=== PATIENT | female | born 1970 | race Caucasian/White ===

== ENCOUNTER 2016-05-30 09:18 | Emergency (ER) | payer MEDICAID ==
[2015-01-02 18:47] VITALS: BMI 58.4
[~2016-05-30 09:18] MED LIST: ADVAIR 250/501 DISK INH; ALBUTEROL2.5 MG/3 M INH; BUSPAR 15 MG TA15 MG PO; COMBIVENT RESPIM4 GM INH; EFFEXOR XR37.5 MG PO; IPRAT-ALBUT 0.5-3 ML UPD; MEDROL DOSE PACK4 MG PO; MUCINEX DM ER1 EAC1 PO; REQUIP0.25 MG PO; RESTORIL22.5 MG PO; SINGULAIR10 MG PO; ZITHROMAX250 MG PO
[2016-05-30 12:36] LABS: BASOPHILS 0.3 % (0.0-2.0); EOSINOPHILS 3.7 % (0-7); HEMOGLOBIN 14.4 g/dL (12-16); IMMATURE GRANULOCYTES 0.6 % (0-5); LYMPHOCYTES 18.5 % (15-50); MCHC 33.5 g/dL (31.0-37.0); MCV 86.5 fL (80.0-100.0); MEAN PLATELET VOLUME 9.7 fL (7.4-10.4); MONOCYTES 8.7 % (2-11); NEUTROPHILS 68.2 % (40-80); RBC 4.97 10x6/uL (4.00-5.40)
[2016-05-30 12:52] LABS: ALBUMIN 3.2 g/dL (3.4-5.0); ALKALINE PHOSPHATASE 160 U/L (46-116); ALT (SGPT) 32 U/L (10-68); CALC OSMOLALITY 269 mosm/kg (275-300); CALCIUM 8.8 mg/dL (8.5-10.1); CARBON DIOXIDE 27.5 mmol/L (21.0-32.0); CHLORIDE - SERUM 101 mmol/L (98-107); CREATININE - SERUM 0.7 mg/dL (0.6-1.3); GLUCOSE 109 mg/dL (74-106); PLATELET COUNT 181 10x3/uL (130-400); POTASSIUM - SERUM 3.5 mmol/L (3.5-5.1); PROTEIN - SERUM 7.1 g/dL (6.4-8.2); SODIUM 136 mmol/L (136-145); UREA NITROGEN 5 mg/dL (7-18); eGFR NON AFRICAN AMERICAN > 90 mL/min (90-120)
== END 2016-05-30 13:40 | disposition home or self-care (01) ==
LOC: D.ER 09:18
PROVIDERS: Physician Assistant Medical
DX: J45.901 Unspecified asthma with (acute) exacerbation (principal); J44.1 Chronic obstructive pulmonary disease with (acute) exacerbation

== ENCOUNTER → 2016-07-29 10:49 | Outpatient (CLI) | payer OTHER ==
[2015-01-02 18:47] VITALS: BMI 58.4
== END | disposition home or self-care (01) ==
LOC: D.RT 10:49
DX: Z02.71 Encounter for disability determination (principal)

== ENCOUNTER 2018-09-23 13:37 | Emergency (ER) | payer MEDICAID ==
[2015-01-02 18:47] VITALS: Ht 160 cm; Wt 136.4 kg
[~2018-09-23] VITALS: Ht 160 cm; Wt 136.4 kg
[2018-09-23 14:05] LABS: BASOPHILS 0.3 % (0-2); EOSINOPHILS 4.4 % (0-7); HEMATOCRIT 39.1 % (36.0-48.0); HEMOGLOBIN 13.1 g/dL (12-16); IMMATURE GRANULOCYTES 0.4 % (0-5); LYMPHOCYTES 22.7 % (15-50); MCHC 33.5 g/dL (31.0-37.0); MCV 83.5 fL (80.0-100.0); MEAN PLATELET VOLUME 9.2 fL (7.4-10.4); MONOCYTES 5.8 % (2-11); NEUTROPHILS 66.4 % (40-80); RBC 4.68 10x6/uL (4.00-5.40); RDW 13.8 % (11.5-14.5)
[2018-09-23 14:10] LABS: PLATELET COUNT 276 10x3/uL (130-400)
[2018-09-23 14:20] LABS: ALBUMIN 2.8 g/dL (3.4-5.0); ALKALINE PHOSPHATASE 158 U/L (46-116); ALT (SGPT) 27 U/L (10-68); BILIRUBIN - TOTAL 0.32 mg/dL (0.2-1.3); CALC OSMOLALITY 274 mosm/kg (275-300); CALCIUM 8.2 mg/dL (8.5-10.1); CHLORIDE - SERUM 104 mmol/L (98-107); CREATININE - SERUM 0.6 mg/dL (0.6-1.3); GLUCOSE 123 mg/dL (74-106); POTASSIUM - SERUM 3.6 mmol/L (3.5-5.1); PROTEIN - SERUM 6.7 g/dL (6.4-8.2); SODIUM 138 mmol/L (136-145); UREA NITROGEN 6 mg/dL (7-18); eGFR NON AFRICAN AMERICAN > 90 mL/min (90-120)
[2018-09-23] MEDS ORDERED: VIBRAMYCIN 100100 MG PO (18:55)
[2018-09-23] MEDS ORDERED: IPRAT-ALBUT 0.5-3 ML UPD (18:55)
[2018-09-23] MEDS ORDERED: PREDNISONE10 MG PO (18:55)
[2018-09-23 19:13] VITALS: BP 147/59
== END 2018-09-23 19:15 | disposition home or self-care (01) ==
LOC: D.ER 13:37
PROVIDERS: Emergency Medicine
DX: J44.1 Chronic obstructive pulmonary disease with (acute) exacerbation (principal)

== ENCOUNTER 2019-01-04 17:47 | Emergency (ER) | payer OTHER ==
[~2019-01-04] VITALS: Ht 160 cm; Wt 136.4 kg
[~2019-01-04 17:47] MED LIST changes: +PREDNISONE10 MG PO; +VIBRAMYCIN 100100 MG PO
[2019-01-04 18:06] VITALS: Ht 160 cm; Wt 136.4 kg
[2019-01-04] MEDS ORDERED: TYLENOL W/CODEI1 TAB PO (20:19)
[2019-01-04] MEDS ORDERED: PENICILLIN V P500 MG PO (20:20)
[2019-01-04 21:15] VITALS: BP 174/102
== END 2019-01-04 21:18 | disposition home or self-care (01) ==
LOC: D.ER 17:47
DX: K08.89 Other specified disorders of teeth and supporting structures (principal)

== ENCOUNTER 2019-01-25 20:15 | Emergency (ER) | payer OTHER ==
[~2019-01-25] VITALS: Ht 160 cm; Wt 136.4 kg
[~2019-01-25 20:15] MED LIST changes: +PENICILLIN V P500 MG PO; +TYLENOL W/CODEI1 TAB PO
[2019-01-25 20:30] VITALS: Ht 160 cm; Wt 136.4 kg
[2019-01-25 22:15] LABS: BASOPHILS 0.2 % (0-2); EOSINOPHILS 2.7 % (0-7); HEMATOCRIT 38.8 % (36.0-48.0); HEMOGLOBIN 12.5 g/dL (12-16); IMMATURE GRANULOCYTES 0.2 % (0-5); LYMPHOCYTES 24.5 % (15-50); MCH 27.7 pg (26.0-34.0); MCHC 32.2 g/dL (31.0-37.0); MEAN PLATELET VOLUME 9.4 fL (7.4-10.4); MONOCYTES 6.1 % (2-11); NEUTROPHILS 66.3 % (40-80); PLATELET COUNT 287 10x3/uL (130-400); RBC 4.51 10x6/uL (4.00-5.40); RDW 13.7 % (11.5-14.5); WBC 8.7 10x3/uL (4.8-10.8)
[2019-01-25 22:24] LABS: INR 0.97 (0.85-1.17); PROTIME 12.4 SECONDS (11.6-15.0)
[2019-01-25 22:37] LABS: ALBUMIN 2.9 g/dL (3.4-5.0); ALKALINE PHOSPHATASE 123 U/L (46-116); ALT (SGPT) 12 U/L (10-68); BILIRUBIN - TOTAL 0.11 mg/dL (0.2-1.3); CALC OSMOLALITY 271 mosm/kg (275-300); CALCIUM 8.6 mg/dL (8.5-10.1); CARBON DIOXIDE 29.3 mmol/L (21.0-32.0); CHLORIDE - SERUM 103 mmol/L (98-107); CREATININE - SERUM 0.7 mg/dL (0.6-1.3); GLUCOSE 109 mg/dL (74-106); POTASSIUM - SERUM 3.5 mmol/L (3.5-5.1); PROTEIN - SERUM 6.6 g/dL (6.4-8.2); SODIUM 136 mmol/L (136-145); UREA NITROGEN 9 mg/dL (7-18); eGFR NON AFRICAN AMERICAN > 90 mL/min (90-120)
[2019-01-25 22:52] LABS: CKMB 0.2 U/L (0.0-3.6); CREATINE KINASE 34 UL (21-215); PRO BNP 237 pg/mL (0-125); TROPONIN-I < 0.017 ng/mL (0.000-0.060)
[2019-01-25] MEDS ORDERED: CLEOCIN HCL300 MG PO (23:01)
[2019-01-25] MEDS ORDERED: ALBUTEROL SULF8.5 GM INH (23:03)
[2019-01-26 00:41] VITALS: BP 145/85
== END 2019-01-26 00:42 | disposition home or self-care (01) ==
LOC: D.ER 20:15
PROVIDERS: Family Medicine
DX: J44.1 Chronic obstructive pulmonary disease with (acute) exacerbation (principal); K04.7 Periapical abscess without sinus

== ENCOUNTER 2019-09-10 21:01 | Inpatient (IN) | payer OTHER ==
[~2019-09-10] VITALS: Ht 160 cm; Wt 144.2 kg
[~2019-09-10 21:01] MED LIST changes: +ALBUTEROL SULF8.5 GM INH; +CLEOCIN HCL300 MG PO
--- NOTE | 2019-09-10 21:15 | NUR ---
MENTAL HEALTH RN AT PT BEDSIDE PERFORMING ASSESSMENT
[2019-09-10 21:18] LABS: BASOPHILS 0.2 % (0-2); EOSINOPHILS 6.7 % (0-7); HEMOGLOBIN 12.7 g/dL (12-16); IMMATURE GRANULOCYTES 0.4 % (0-5); LYMPHOCYTES 25.7 % (15-50); MCH 27.4 pg (26.0-34.0); MCHC 31.8 g/dL (31.0-37.0); MCV 86.2 fL (80.0-100.0); MEAN PLATELET VOLUME 8.7 fL (7.4-10.4); MONOCYTES 6.3 % (2-11); NEUTROPHILS 60.7 % (40-80); PLATELET COUNT 288 10x3/uL (130-400); RBC 4.64 10x6/uL (4.00-5.40); RDW 13.7 % (11.5-14.5); WBC 8.3 10x3/uL (4.8-10.8)
[2019-09-10 21:27] LABS: APTT 29.7 SECONDS (22.8-39.4); CALC OSMOLALITY 269 mosm/kg (275-300); CALCIUM 8.1 mg/dL (8.5-10.1); CARBON DIOXIDE 26.3 mmol/L (21.0-32.0); CHLORIDE - SERUM 103 mmol/L (98-107); CREATININE - SERUM 0.8 mg/dL (0.6-1.3); GLUCOSE 115 mg/dL (74-106); INR 0.98 (0.85-1.17); PROTIME 12.9 SECONDS (11.6-15.0); SODIUM 135 mmol/L (136-145); UREA NITROGEN 9 mg/dL (7-18); eGFR NON AFRICAN AMERICAN 81 mL/min (90-120)
[2019-09-10 21:43] LABS: ALBUMIN 2.9 g/dL (3.4-5.0); ALKALINE PHOSPHATASE 140 U/L (30-120); ALT (SGPT) 36 U/L (10-68); BILIRUBIN - TOTAL 0.23 mg/dL (0.2-1.3); CKMB 0.7 U/L (0.0-3.6); CREATINE KINASE 48 UL (21-215); PRO BNP 181 pg/mL (0-125); PROTEIN - SERUM 6.5 g/dL (6.4-8.2)
[2019-09-10 21:45] LABS: TROPONIN-I < 0.017 ng/mL (0.000-0.060)
--- NOTE | 2019-09-10 22:15 | NUR ---
PT SITTING UPRIGHT ON BED. NO S/S OF ACUTE DISTRESS NOTED. PT DENIES NEEDS AT THIS TIME.
[2019-09-10 23:13] VITALS: BP 168/84
[2019-09-11] VITALS (7 sets, daily range): BP systolic 113–162; BP diastolic 60–103; BMI 56.4
--- NOTE | 2019-09-11 00:05 | NUR ---
PT ARRIVED ON UNIT VIA STRETCHER ESCORTED BY ER NURSE. POSITIONED IN BED FOR COMFORT. PROVIDED WATER, DIET SODA AND SANDWCH TRAY. O2 IN USE VIA NC AT 3L. TELEMETRY PLACED PER ORDER AND PT READING SR AT THIS ASSESSMENT.
[2019-09-11] MEDS ORDERED: COREG 3.1253.125 MG PO (00:10)
[2019-09-11] MEDS ORDERED: TRAZODONE HCL150 MG PO (00:11)
[2019-09-11] MEDS ORDERED: OMEPRAZOLE20 M1 PO (00:12)
[2019-09-11] MEDS ORDERED: PAROXETINE HCL10 MG PO (00:12)
[2019-09-11] MEDS ORDERED: FUROSEMIDE40 MG PO (00:13)
[2019-09-11] MEDS ORDERED: ADVAIR 250-501 EAC1 INH (00:14)
--- NOTE | 2019-09-11 01:00 | NUR ---
ADMISSION ASSESSMENT AND HISTORY COMPLETE. HOME MED REC COMPLETE FOR MD REVIEW IN AM.
--- NOTE | 2019-09-11 03:57 | NUR ---
CALLED RT TO REQUEST PRN UPDRAFT TREATMENT, PER PT REQUEST FOR SHORTNESS OF BREATH. SPO2 94% ON 3L O2 AT THIS ASSESSMENT.
[2019-09-11 05:30] LABS: BASOPHILS 0.1 % (0-2); EOSINOPHILS 0.1 % (0-7); HEMATOCRIT 43.1 % (36.0-48.0); HEMOGLOBIN 13.6 g/dL (12-16); IMMATURE GRANULOCYTES 0.4 % (0-5); LYMPHOCYTES 10.5 % (15-50); MCH 27.1 pg (26.0-34.0); MCHC 31.6 g/dL (31.0-37.0); MCV 85.9 fL (80.0-100.0); MEAN PLATELET VOLUME 9.4 fL (7.4-10.4); MONOCYTES 0.7 % (2-11); NEUTROPHILS 88.2 % (40-80); PLATELET COUNT 298 10x3/uL (130-400); RBC 5.02 10x6/uL (4.00-5.40); RDW 13.6 % (11.5-14.5); WBC 7.4 10x3/uL (4.8-10.8)
[2019-09-11 05:57] LABS: ALBUMIN 3.3 g/dL (3.4-5.0); ALKALINE PHOSPHATASE 166 U/L (30-120); ALT (SGPT) 55 U/L (10-68); BILIRUBIN - TOTAL 0.24 mg/dL (0.2-1.3); CALC OSMOLALITY 275 mosm/kg (275-300); CALCIUM 8.3 mg/dL (8.5-10.1); CARBON DIOXIDE 24.4 mmol/L (21.0-32.0); CHLORIDE - SERUM 102 mmol/L (98-107); CREATININE - SERUM 0.8 mg/dL (0.6-1.3); GLUCOSE 151 mg/dL (74-106); PHOSPHOROUS 3.1 mg/dL (2.5-4.9); POTASSIUM - SERUM 4.2 mmol/L (3.5-5.1); PROTEIN - SERUM 6.8 g/dL (6.4-8.2); SODIUM 137 mmol/L (136-145); TROPONIN-I < 0.017 ng/mL (0.000-0.060); UREA NITROGEN 10 mg/dL (7-18); eGFR NON AFRICAN AMERICAN 81 mL/min (90-120)
--- NOTE | 2019-09-11 09:07 | NUR ---
PT RUFUS OLIVER BED ON LEFT SIDE, STATED PAIN IS AT A 6, NO MEDICATIONS ON MAR FOR PT FOR PAIN RELIEF, TOLD PT I WILL ASK DR WHEN ROUNDS ARE MADE. NO S/SX OF DISTRESS, CL IN REACH, IV IN LT FA, SL CDI. CONTINUE WITH PLAN OF CARE
[2019-09-11 11:29] LABS: CKMB 0.5 U/L (0.0-3.6); CREATINE KINASE 48 UL (21-215); FERRITIN 38 ng/mL (3-244); TROPONIN-I < 0.017 ng/mL (0.000-0.060)
--- NOTE | 2019-09-11 11:53 | NUR ---
ADMINISTERED SCHEDULED MEDICATION AND STARTED IV ABX ORDERED, PT IS SITTIG UP IN BED, JUST AMBULATED BACK FROM RESTROOM. NO NEEDS VOICED, CL IN REACH CONTINUE WITH PLAN OF CARE
[2019-09-11 16:39] LABS: CKMB 0.5 U/L (0.0-3.6); CREATINE KINASE 44 UL (21-215)
[2019-09-11 16:40] LABS: TROPONIN-I < 0.017 ng/mL (0.000-0.060)
--- NOTE | 2019-09-11 17:18 | NUR ---
PT REQUESTED PAIN MEDICATION, NO MEDICATION ON PT JUN, HAD SOMEONE PAGE CYRUS FOR ME PT STATED SHE HAS PAIN ALL OVER AND IN HER EARS. WILL PAGE CYRUS
--- NOTE | 2019-09-11 19:00 | NUR ---
BEDSIDE REPORT RECEIVED AND CARE OF PT ASSUMED. PT LYING IN LOW ARANA'S POSITION WITH EYES CLOSED. O2 IN USE VIA NC AT 3L. TELEMETRY IN PLACE AND READING SR AT THIS ASSESSMENT. WILL MONITOR FOR NEEDS.
--- NOTE | 2019-09-11 20:44 | NUR ---
HS MEDICATIONS GIVEN. WILL CONTINUE TO MONITOR FOR NEEDS.
[2019-09-11 22:46] LABS: CKMB 0.7 U/L (0.0-3.6); CREATINE KINASE 48 UL (21-215)
[2019-09-11 22:48] LABS: TROPONIN-I < 0.017 ng/mL (0.000-0.060)
[2019-09-12 00:39] VITALS: BP 136/72
--- NOTE | 2019-09-12 05:00 | NUR ---
PT C/O REDNESS ON LEFT AC AREA AFTER ELECTRO MECHANICAL TECHNOLOGIST REMOVED TAP...REDNESS AND IRRITATED. APPLIED LOTION TO SOOTH.
--- NOTE | 2019-09-12 05:52 | NUR ---
PT SCREAMED AND STARTED CRYING WHEN FLUSHING IV TO RIGHT FA...EVEN THOUGH IV FLUSHED WELL WITH BLOOD RETURN. REMOVED WITH CATHETER TIP INTACT. PLACED ORDER FOR VASCULAR ACCESS NURSE TO EVAL PT FOR IV ACCESS.
[2019-09-12 06:08] LABS: BASOPHILS 0 % (0-2); EOSINOPHILS 0 % (0-7); HEMATOCRIT 41.6 % (36.0-48.0); IMMATURE GRANULOCYTES 0.3 % (0-5); LYMPHOCYTES 6.9 % (15-50); MCHC 31.3 g/dL (31.0-37.0); MCV 86.5 fL (80.0-100.0); MEAN PLATELET VOLUME 9.1 fL (7.4-10.4); MONOCYTES 2.1 % (2-11); NEUTROPHILS 90.7 % (40-80); RBC 4.81 10x6/uL (4.00-5.40); RDW 13.8 % (11.5-14.5)
[2019-09-12 06:29] LABS: ALBUMIN 3.1 g/dL (3.4-5.0); ALKALINE PHOSPHATASE 152 U/L (30-120); ALT (SGPT) 57 U/L (10-68); BILIRUBIN - TOTAL 0.15 mg/dL (0.2-1.3); CALC OSMOLALITY 279 mosm/kg (275-300); CALCIUM 8.8 mg/dL (8.5-10.1); CARBON DIOXIDE 26.6 mmol/L (21.0-32.0); CHLORIDE - SERUM 105 mmol/L (98-107); CREATININE - SERUM 0.8 mg/dL (0.6-1.3); GLUCOSE 151 mg/dL (74-106); POTASSIUM - SERUM 4.6 mmol/L (3.5-5.1); PROTEIN - SERUM 6.5 g/dL (6.4-8.2); SODIUM 138 mmol/L (136-145); UREA NITROGEN 15 mg/dL (7-18); eGFR NON AFRICAN AMERICAN 81 mL/min (90-120)
[2019-09-12 06:34] LABS: PLATELET COUNT 370 10x3/uL (130-400); WBC 14.6 10x3/uL (4.8-10.8)
[2019-09-12 06:48] VITALS: BP 139/80
--- NOTE | 2019-09-12 07:30 | NUR ---
REC'D IN BED AWAKE AND ALERT. RESP EVEN AND UNLABORED WITH NO DISTRESS NOTED. CAN EXPRESS NEEDS AND WANTS. NO C/O NOTED OR VOICED. ASSESSMENT COMPLETED. C/L IN REACH AT BEDSIDE.
--- NOTE | 2019-09-12 07:49 | NUR ---
PATIENT IS WITHOUT DISTRESS. RESP TX IS COMPLETE PER RT.
[2019-09-12 08:08] VITALS: Ht 160 cm; Wt 144.2 kg
[2019-09-12 08:52] VITALS: BP 141/76
--- NOTE | 2019-09-12 15:55 | NUR ---
WAS MEDICATED WITH NORCO PER ORDERS FOR C/O ARM PAIN. C/L IN REACH AT BEDSIDE.
--- NOTE | 2019-09-12 16:46 | MORECARE ---
CASE MANAGEMENT DISCHARGE SUMMARY PATIENT: ERNIE LOW UNIT: [id number] ADM DATE: 09/10/19 AGE: 48 : 68 SEX: F ROOM/BED: D.2226 AUTHOR: CELSO MCINTYRE PHYSICIAN: REFERRING PHYSICIAN: WESLEY GARZA MD DATE OF SERVICE: 09/12/19 Discharge Plan Patient Name: ERNIE LOW Facility: [facility]:[place] : 1970 Planned Disposition: Home Anticipated Discharge Date: Discharge Date: Expected LOS: Initial Reviewer: [id number] Initial Review Date: 09/12/2019 Generated: 09/12/19 5:46 pm Comments DCP- Discharge Planning Updated by [id number]: Yareli Hwang on 09/12/19 3:[address] Patient Name: ERNIE LOW Admission Status: ER Accout number: [id number] Admission Date: 09-10-2019 : 1970 Admission Diagnosis: Attending: WESLEY GARZA Current LOS: 2 Anticipated DC Date: Planned Disposition: Home Primary Insurance: [employer] Discharge Planning Comments: CM met with patient at bedside after explaining CM role and obtaining verbal consent. CM discussed availability / needs of home health, REHAB and medical equipment. PATIENT DENIES ANY DISCHARGE NEEDS. HAS CPAP AND NEBS AT HOME THROUGH [place]. CM TO FOLLOW AND ASSIST NEEDED. Director Of Services: Yareli Hwang DCPIA - Discharge Planning Initial Assessment Updated by [id number]: Yareli Hwang on 09/12/19 4:45 pm * Is the patient Alert and Oriented? Yes * PCP LAURENCE * Pharmacy [facility] * Preadmission Environment Home with Family * ADLs Independent * Other Equipment CPAP, NEBS * Additional services required to return to the preadmission environment? No * Can the patient safely return to the preadmission environment? Yes * Has this patient been hospitalized within the prior 30 days at any hospital? No Patient Name: ERNIE LOW Page [phone] at 1646 All edits/amendments must be made on the electronic document DICTATION DATE: 09/12/19 1646 RED HAT OPEN STACK ADMINISTRATOR: KIMBERLEE 09/12/19 1646 RPT#: [id number] [place] DATE: STATUS: ADM IN [facility] [address] [place] [address] END OF REPORT
[2019-09-12 17:14] VITALS: BP 133/83
--- NOTE | 2019-09-12 19:00 | NUR ---
BEDSIDE REPORT RECEIVED AND CARE OF PT ASSUMED. PT SITTING UP IN BED WATCHING TV. RIGHT MIDLINE SALINE LOCKED. TELEMETRY IN PLACE AND READING 81 SR AT THIS ASSESSMENT. O2 IN USE VIA NC AT 3L. WILL MONITOR FOR NEEDS.
--- NOTE | 2019-09-12 20:04 | NUR ---
HS MEDICATIONS GIVEN TO INCLUDE NORCO PER REQUEST FOR SEVERE PAIN IN ARM. WILL MONITOR FOR EFFECTIVENESS.
[2019-09-12 21:26] VITALS: BP 132/63
[2019-09-13 01:30] VITALS: BP 119/48
[2019-09-13 04:07] LABS: IMMUNOGLOBULIN A 246 mg/dL (87-352); IMMUNOGLOBULIN G 845 mg/dL (586-1602)
[2019-09-13 06:27] VITALS: BP 108/55
[2019-09-13 08:00] VITALS: BP 133/49
[2019-09-13 10:49] LABS: BASOPHILS 0.1 % (0-2); EOSINOPHILS 0 % (0-7); HEMATOCRIT 41.7 % (36.0-48.0); HEMOGLOBIN 12.8 g/dL (12-16); IMMATURE GRANULOCYTES 0.8 % (0-5); LYMPHOCYTES 5.6 % (15-50); MCH 27.1 pg (26.0-34.0); MCHC 30.7 g/dL (31.0-37.0); MCV 88.2 fL (80.0-100.0); MEAN PLATELET VOLUME 9.6 fL (7.4-10.4); NEUTROPHILS 91.5 % (40-80); RBC 4.73 10x6/uL (4.00-5.40); RDW 13.8 % (11.5-14.5); WBC 12.4 10x3/uL (4.8-10.8)
[2019-09-13 10:52] LABS: PLATELET COUNT 265 10x3/uL (130-400)
[2019-09-13 10:55] LABS: ALBUMIN 2.9 g/dL (3.4-5.0); ALKALINE PHOSPHATASE 130 U/L (30-120); ALT (SGPT) 48 U/L (10-68); BILIRUBIN - TOTAL 0.18 mg/dL (0.2-1.3); CALCIUM 8.2 mg/dL (8.5-10.1); CARBON DIOXIDE 24.8 mmol/L (21.0-32.0); CHLORIDE - SERUM 104 mmol/L (98-107); CREATININE - SERUM 0.8 mg/dL (0.6-1.3); POTASSIUM - SERUM 4.1 mmol/L (3.5-5.1); PROTEIN - SERUM 6.6 g/dL (6.4-8.2); SODIUM 137 mmol/L (136-145); UREA NITROGEN 18 mg/dL (7-18); eGFR NON AFRICAN AMERICAN 81 mL/min (90-120)
[2019-09-13 10:56] LABS: CALC OSMOLALITY 285 mosm/kg (275-300); GLUCOSE 285 mg/dL (74-106)
[2019-09-13 12:00] VITALS: BP 113/50
--- NOTE | 2019-09-13 15:54 | NUR ---
I have reviewed this patient and I concur with the Shift Assessment completed by the Licensed Practical Nurse today this shift.
[2019-09-13 16:00] VITALS: BP 120/59
[2019-09-13 20:00] VITALS: BP 141/67
[2019-09-14 00:07] VITALS: BP 135/66
--- NOTE | 2019-09-14 01:26 | NUR ---
PT RESTING IN BED. EYES CLOSED. NO SIGNS OF DISTRESS. BREATHING EVEN AND UNLABORED. IV SITE LT UPPER ARM MIDLINE DRESSING CLEAN DRY AND INTACT. NO SIGNS OF INFCTION OR INFULTRATION. 3LO2 NASAL CANNULA. WILL CONTINUE PLAN OF CARE. CALL LIGHT IN REACH. BED LOWERED AND LOCKED. BED RAILS UPX2.
--- NOTE | 2019-09-14 03:36 | NUR ---
I have reviewed this patient and I concur with the Shift Assessment completed by the Licensed Practical Nurse today this shift.
[2019-09-14 04:00] VITALS: BP 114/55
[2019-09-14 04:28] LABS: BASOPHILS 0 % (0-2); EOSINOPHILS 0 % (0-7); HEMATOCRIT 40.4 % (36.0-48.0); HEMOGLOBIN 12.4 g/dL (12-16); LYMPHOCYTES 10.8 % (15-50); MCHC 30.7 g/dL (31.0-37.0); MCV 87.8 fL (80.0-100.0); MEAN PLATELET VOLUME 9.2 fL (7.4-10.4); MONOCYTES 3.6 % (2-11); NEUTROPHILS 84.6 % (40-80); PLATELET COUNT 297 10x3/uL (130-400); RDW 13.9 % (11.5-14.5); WBC 10.4 10x3/uL (4.8-10.8)
[2019-09-14 04:48] LABS: ALBUMIN 2.8 g/dL (3.4-5.0); ALKALINE PHOSPHATASE 111 U/L (30-120); ALT (SGPT) 41 U/L (10-68); BILIRUBIN - TOTAL 0.17 mg/dL (0.2-1.3); CALCIUM 8.1 mg/dL (8.5-10.1); CARBON DIOXIDE 29.8 mmol/L (21.0-32.0); CHLORIDE - SERUM 104 mmol/L (98-107); CREATININE - SERUM 0.7 mg/dL (0.6-1.3); POTASSIUM - SERUM 4.5 mmol/L (3.5-5.1); PROTEIN - SERUM 6.2 g/dL (6.4-8.2); SODIUM 137 mmol/L (136-145); UREA NITROGEN 18 mg/dL (7-18); eGFR NON AFRICAN AMERICAN > 90 mL/min (90-120)
[2019-09-14 04:55] LABS: CALC OSMOLALITY 279 mosm/kg (275-300); GLUCOSE 175 mg/dL (74-106)
[2019-09-14 08:34] VITALS: BP 121/67
--- NOTE | 2019-09-14 11:42 | NUR ---
I have reviewed this patient and I concur with the Shift Assessment completed by the Licensed Practical Nurse today this shift.
[2019-09-14 12:59] VITALS: BP 119/65
[2019-09-14 16:55] VITALS: BP 146/78
[2019-09-14 20:00] VITALS: BP 112/70
[2019-09-15] VITALS: BP 105/53
--- NOTE | 2019-09-15 02:29 | NUR ---
PT RESTING IN BED. EYES CLOSED. NO SIGNS OF DISTRESS. BREATHING EVEN AND UNLABORED. IV SITE LT UPPER ARM MIDLINE. DRESSING CLEAN DRY AND INTACT. NO SIGNS OF INFECTION. 3LO2 NASAL CANNULA. SKIN CLEAN DRY AND INTACT. WILL CONTINUE PLAN OF CARE. CALL LIGHT IN REACH. BED LOWERED AND LOCKED.
--- NOTE | 2019-09-15 02:56 | NUR ---
I have reviewed this patient and I concur with the Shift Assessment completed by the Licensed Practical Nurse today this shift.
[2019-09-15 03:07] LABS: IMMUNOGLOBULIN E 28 IU/mL (6-495)
[2019-09-15 04:00] VITALS: BP 122/66
[2019-09-15 05:31] LABS: HEMATOCRIT 42.1 % (36.0-48.0); HEMOGLOBIN 13.2 g/dL (12-16); MCH 27.7 pg (26.0-34.0); MCHC 31.4 g/dL (31.0-37.0); MCV 88.4 fL (80.0-100.0); MEAN PLATELET VOLUME 9.2 fL (7.4-10.4); PLATELET COUNT 268 10x3/uL (130-400); RBC 4.76 10x6/uL (4.00-5.40); RDW 13.7 % (11.5-14.5); WBC 10.9 10x3/uL (4.8-10.8)
[2019-09-15 06:05] LABS: ALKALINE PHOSPHATASE 112 U/L (30-120); ALT (SGPT) 43 U/L (10-68); BILIRUBIN - TOTAL 0.13 mg/dL (0.2-1.3); CALC OSMOLALITY 276 mosm/kg (275-300); CARBON DIOXIDE 25.8 mmol/L (21.0-32.0); CHLORIDE - SERUM 103 mmol/L (98-107); CREATININE - SERUM 0.7 mg/dL (0.6-1.3); GLUCOSE 152 mg/dL (74-106); PROTEIN - SERUM 6.3 g/dL (6.4-8.2); SODIUM 136 mmol/L (136-145); UREA NITROGEN 18 mg/dL (7-18); eGFR NON AFRICAN AMERICAN > 90 mL/min (90-120)
[2019-09-15 06:08] LABS: POTASSIUM - SERUM 5.2 mmol/L (3.5-5.1)
[2019-09-15 08:25] LABS: LYMPHOCYTES 8 % (15-50); MONOCYTES 7 % (2-11); NEUTROPHILS 85 % (40-80); PLATELET ESTIMATE NORMAL
[2019-09-15 09:00] VITALS: BP 145/78
--- NOTE | 2019-09-15 09:42 | NUR ---
Nutrition follow-up: Visited with pt during breakfast. Pt with good po intake; 100% of meals PO intake averaging ~75% of meals, snacks Wt: 318# Labs reviewed; Glucose elevated Pt with no questions re: ADA consistent CHO diet. Diet packet on bedside table. RDN following.
--- NOTE | 2019-09-15 13:11 | NUR ---
I have reviewed this patient and I concur with the Shift Assessment completed by the Licensed Practical Nurse today this shift.
[2019-09-15 13:20] VITALS: BP 121/67
--- NOTE | 2019-09-15 14:02 | NUR ---
PT LYING ON RIGHT SIDE EYES CLOSED, EVEN RISE AND FALL OF CHEST. NO S/SX OF DISTRESS, ADMINISTERED SCHEDULED MEDICATION THROUGH IV AND SL IV. PT EASILY AWAKENED, NO NEEDS VOICED, CONTINUE WITH PLAN OF CARE
[2019-09-15 16:00] VITALS: BP 141/59
[2019-09-15 20:00] VITALS: BP 136/66
[2019-09-16 04:00] VITALS: BP 112/57
--- NOTE | 2019-09-16 04:14 | NUR ---
PT RESTING IN BED. EYES CLOSED. NO SIGNS OF DISTRESS. BREATHING EVEN AND UNLABORED. IV SITE LT UPPER ARM DRESSING CLEAN DRY AND INTACT. NO SIGNS OF INFECTION OR INFULTRATION. 2LO2 NASAL CANNULA. BOWEL SOUNDS ACTIVE. WILL CONTINUE PLAN OF CARE. CALL LIGHT IN REACH. BED LOWERED AND LOCKED. BED RAILS UPX2.
--- NOTE | 2019-09-16 04:22 | NUR ---
I have reviewed this patient and I concur with the Shift Assessment completed by the Licensed Practical Nurse today this shift.
[2019-09-16 05:14] LABS: BASOPHILS 0.1 % (0-2); EOSINOPHILS 0 % (0-7); HEMOGLOBIN 12.5 g/dL (12-16); LYMPHOCYTES 11.2 % (15-50); MCH 27.2 pg (26.0-34.0); MCHC 31.3 g/dL (31.0-37.0); MCV 87.1 fL (80.0-100.0); MEAN PLATELET VOLUME 9.2 fL (7.4-10.4); NEUTROPHILS 80.7 % (40-80); PLATELET COUNT 315 10x3/uL (130-400); RBC 4.59 10x6/uL (4.00-5.40); RDW 13.6 % (11.5-14.5); WBC 12.1 10x3/uL (4.8-10.8)
[2019-09-16 05:27] LABS: ALBUMIN 2.7 g/dL (3.4-5.0); ALKALINE PHOSPHATASE 93 U/L (30-120); ALT (SGPT) 40 U/L (10-68); BILIRUBIN - TOTAL 0.13 mg/dL (0.2-1.3); CALC OSMOLALITY 274 mosm/kg (275-300); CALCIUM 7.9 mg/dL (8.5-10.1); CARBON DIOXIDE 31.8 mmol/L (21.0-32.0); CHLORIDE - SERUM 102 mmol/L (98-107); CREATININE - SERUM 0.7 mg/dL (0.6-1.3); GLUCOSE 165 mg/dL (74-106); POTASSIUM - SERUM 4.5 mmol/L (3.5-5.1); PROTEIN - SERUM 6.1 g/dL (6.4-8.2); SODIUM 135 mmol/L (136-145); UREA NITROGEN 16 mg/dL (7-18); eGFR NON AFRICAN AMERICAN > 90 mL/min (90-120)
--- NOTE | 2019-09-16 07:53 | NUR ---
ALERT AND ORIENTED X4. O2 2L N/C. RESP EVENAND UNLABORED W/O EXERTION WITH BREATH SOUNDS DIMINISHED X4 ANTERIOR. TRACE EDEMA NOTED TO BLE. IV TO LEFT MIDLINE S/L. PATIENT UP ADLIB AND ENCOURAGED AMBULATION TO NCREASE STRENGTH AND ENDURANCE.
[2019-09-16 08:00] VITALS: BP 157/88
[2019-09-16 12:00] VITALS: BP 112/56
[2019-09-16] MEDS ORDERED: OMNICEF300 MG PO (15:06)
[2019-09-16] MEDS ORDERED: ZITHROMAX500 MG PO (15:06)
[2019-09-16] MEDS ORDERED: STERAPRED DS 1010 MG PO (15:07)
[2019-09-16] MEDS ORDERED: PROTONIX40 MG PO (15:07)
--- NOTE | 2019-09-16 16:45 | NUR ---
MIDLINE DISCONTINNUED AND VERBALIZED UNDERSTANDING OF DISCHARGE INSTRUCTIONS. STABLE AT TIME OF DISCHARGE.
--- NOTE | 2019-09-17 09:48 | MORECARE ---
CASE MANAGEMENT DISCHARGE SUMMARY PATIENT: ERNIE LOW UNIT: [id number] ADM DATE: 09/10/19 AGE: 48 : 68 SEX: F ROOM/BED: D.2226 AUTHOR: CELSO MCINTYRE PHYSICIAN: REFERRING PHYSICIAN: WESLEY GARZA MD DATE OF SERVICE: 09/17/19 Discharge Plan Patient Name: ERNIE LOW Facility: [facility]:[place] : 1970 Planned Disposition: Home Anticipated Discharge Date: Discharge Date: 09/16/2019 Expected LOS: Initial Reviewer: [email or web address] Initial Review Date: 09/12/2019 Generated: 09/17/19 10:48 am Comments DCP- Discharge Planning Updated by [email or web address]: Yareli Hwang on 09/12/19 3:[address] Patient Name: ERNIE LOW Admission Status: ER Accout number: [id number] Admission Date: 09-10-2019 : 1970 Admission Diagnosis: Attending: WESLEY GARZA Current LOS: 2 Anticipated DC Date: Planned Disposition: Home Primary Insurance: [employer] Discharge Planning Comments: CM met with patient at bedside after explaining CM role and obtaining verbal consent. CM discussed availability / needs of home health, REHAB and medical equipment. PATIENT DENIES ANY DISCHARGE NEEDS. HAS CPAP AND NEBS AT HOME THROUGH [place]. CM TO FOLLOW AND ASSIST NEEDED. Ross Carrier Driver: Yareli Hwang DCPIA - Discharge Planning Initial Assessment Updated by [id number]: Yareli Hwang on 09/12/19 4:45 pm * Is the patient Alert and Oriented? Yes * PCP LAURENCE * Pharmacy [facility] * Preadmission Environment Home with Family * ADLs Independent * Other Equipment CPAP, NEBS * Additional services required to return to the preadmission environment? No * Can the patient safely return to the preadmission environment? Yes * Has this patient been hospitalized within the prior 30 days at any hospital? No Last DP export: 09/12/19 3:46 p Patient Name: ERNIE LOW Page [phone] at 0948 All edits/amendments must be made on the electronic document DICTATION DATE: 09/17/19 0948 KEY HOLDER: DM 09/17/19 0948 RPT#: [id number] DC DATE:09/16/19 STATUS: DIS IN [facility] [address] [place] [address] END OF REPORT
[2019-09-20 15:10] LABS: IGG SUBCLASS 1 515 mg/dL (248-810); IGG SUBCLASS 2 160 mg/dL (130-555); IGG SUBCLASS 3 93 mg/dL (15-102); IGG SUBCLASS 4 9 mg/dL (2-96); IGGS - IGG SERUM 839 mg/dL (586-1602)
== END 2019-09-16 16:45 | disposition home or self-care (01) | DRG 190 ==
LOC: D.ER 21:01 → D.MS 23:28
PROVIDERS: Internal Medicine Pulmonary Disease; Surgery; ADMIT Family Medicine; ATTEND Family Medicine
PROC: 05HC33Z Insertion of Infusion Device into Left Basilic Vein, Percutaneous Approach (ICD-10-PCS; principal; 2019-09-12)
PROC: B54NZZA Ultrasonography of Left Upper Extremity Veins, Guidance (ICD-10-PCS; 2019-09-12)
DX: J43.9 Emphysema, unspecified (principal); I50.33 Acute on chronic diastolic (congestive) heart failure; Z68.43 Body mass index [BMI] 50.0-59.9, adult; J20.9 Acute bronchitis, unspecified; K76.0 Fatty (change of) liver, not elsewhere classified; E66.01 Morbid (severe) obesity due to excess calories; F31.9 Bipolar disorder, unspecified; J30.9 Allergic rhinitis, unspecified; Z87.891 Personal history of nicotine dependence